=== PATIENT | female | born 2000 | race Asian ===

== ENCOUNTER 2020-11-21 15:09 | Emergency (ER) | payer MEDICAID ==
[~2020-11-21] VITALS: Ht 160 cm; Wt 45.5 kg
[2020-11-21] MEDS ORDERED: METHOCARBAMOL 500 MG TABLET PO ONE (17:45)
[2020-11-21] MEDS ORDERED: IBUPROFEN 600 MG TABLET PO ONE (17:45)
[2020-11-21] MEDS ORDERED: LIDOCAINE 5% TRANSDERMAL PATCH TD ONE (17:45)
[2020-11-21 19:15] VITALS: BP 113/61
== END 2020-11-21 19:47 | disposition home or self-care (01) ==
LOC: EMS 15:13
DX: R07.2 Precordial pain (principal); V49.9XXA Car occupant (driver) (passenger) injured in unspecified traffic accident, initial encounter; Y93.89 Activity, other specified; Y92.89 Other specified places as the place of occurrence of the external cause; Y99.8 Other external cause status
CPT/HCPCS: 71046; 72100; 99284